=== PATIENT | male | born 1965 | race Asian ===

== ENCOUNTER 2020-06-25 07:24 | Day surgery (SDC) | payer OTHER ==
[~2020-06-25] VITALS: Ht 167.6 cm; Wt 79.4 kg
[2020-06-25] MEDS ORDERED: fentaNYL citrate 0.05 MG/ML VIAL ONE (08:12)
[2020-06-25] MEDS ORDERED: LIDOCAINE 2% 100 MG/5 ML UJET TP ONE ×2 (08:12→08:50)
[2020-06-25] MEDS ORDERED: fentaNYL citrate 0.05 MG/ML VIAL IVP ONE (08:50)
[2020-06-25] MEDS ORDERED: fentaNYL citrate 0.05 MG/ML VIAL IVP SCH (08:57)
== END 2020-06-25 09:20 | disposition home or self-care (01) ==
LOC: MOR 07:24 → MMU 07:24 → MOR 09:20
PROVIDERS: ATTEND Internal Medicine Gastroenterology
DX: R19.5 Other fecal abnormalities (principal); K62.1 Rectal polyp; K63.5 Polyp of colon
CPT/HCPCS: 45385; J3010